=== PATIENT | male | born 2000 | race Caucasian/White ===

== ENCOUNTER 2021-02-08 08:06 | Emergency (ER) | payer SELFPAY ==
[2021-02-08] MEDS ORDERED: SODIUM CHLORIDE 0.9% 1000 ML 1,000 ML IV ONE (08:24)
[2021-02-08] MEDS ORDERED: levETIRAcetam 1000 MG/NS 0.75% 1,000 MG/100 ML BAG IV ONE (08:24)
--- NOTE | 2021-02-08 08:28 | Emergency Department Report ---
HPI - General Chief Complaint: Seizure Time Seen by Provider: 02/08/21 08:19 - HPI HPI: This is a 20-year-old male who presents to the emergency department via EMS after a possible seizure. The patient thinks that he was last in the shower and then came to once he was being unloaded from the ambulance into the emergency department. Patient denies any complaints at this time other than feeling "out of it." He denies any past seizure history. He denies any past medical history. The patient occasionally will use a vape pen. No recent illicit drug use but had previously smoked marijuana. He will occasionally drink alcohol but denies daily alcohol use, any use yesterday, or any history of dependence or withdrawal symptoms. He did not take anything, nor was given anything for his symptoms prior to presentation today. ED Past Medical Hx - Past Medical History Previous Medical History?: No - Surgical History Past Surgical History?: No - Social History Smoking Status: Current Every Day Smoker - Medications Home Medications: Home Medications Medication Instructions Recorded Confirmed Last Taken Type HYDROcodone/APAP 5-325 [[place] 1 each PO Q8HR PRN #14 tablet 06/11/13 Unknown Rx 5/325 mg] levETIRAcetam [Keppra TAB] 500 mg PO BID #60 tablet 02/08/21 Unknown Rx ED Review of Systems ROS: Stated complaint: SEIZURE Other details as noted in HPI Comment: All other systems reviewed and negative Constitutional: denies: chills, fever Eyes: denies: eye pain, vision change ENT: denies: ear pain, throat pain Respiratory: denies: cough, shortness of breath Cardiovascular: denies: chest pain, palpitations Gastrointestinal: denies: abdominal pain, vomiting Genitourinary: denies: dysuria, discharge Musculoskeletal: denies: back pain, arthralgia Skin: denies: rash, lesions Neurological: other (Seizure). denies: headache Physical Exam - Physical Exam Vital Signs: Vital Signs 02/08/21 08:19 Temperature 99.1 F Pulse Rate 124 H Respiratory 18 Rate Blood Pressure 141/72 [Right] O2 Sat by Pulse 98 Oximetry Physical Exam: GENERAL: The patient is well-developed well-nourished. HENT: Normocephalic. Atraumatic. Patient has moist mucous membranes. EYES: Extraocular motions are intact. Pupils equal reactive to light bilaterally. No nystagmus. NECK: Supple. Trachea is midline. CHEST/LUNGS: Clear to auscultation. There is no respiratory distress noted. HEART/CARDIOVASCULAR: Regular. There is no tachycardia. There is no murmur. ABDOMEN: Abdomen is soft, nontender. Patient has normal bowel sounds. SKIN: Skin is warm and dry. NEURO: The patient is awake, alert, and oriented. The patient is cooperative. The patient has no focal neurologic deficits. Normal speech. Cranial nerves II through XII grossly intact. No facial asymmetry. No pronator drift or dysmetria. MUSCULOSKELETAL: There is no tenderness or deformity. There is no limitation range of motion. ED Course Vital Signs 02/08/21 08:19 Temperature 99.1 F Pulse Rate 124 H Respiratory 18 Rate Blood Pressure 141/72 [Right] O2 Sat by Pulse 98 Oximetry ED Medical Decision Making - Lab Data Result diagrams: 02/08/21 08:34 02/08/21 08:34 Lab Results 02/08/21 02/08/21 02/08/21 Range/Units 08:34 08:34 08:34 WBC 8.2 (4.5-11.0) K/mm3 RBC 5.15 H (3.65-5.03) M/mm3 Hgb 15.2 (11.8-15.2) gm/dl Hct 42.6 (35.5-45.6) % MCV 83 L (84-94) fl MCH 30 (28-32) pg MCHC 36 H (32-34) % RDW 12.9 L (13.2-15.2) % Plt Count 200 (140-440) K/mm3 Lymph % (Auto) 40.4 H (13.4-35.0) % [place] % (Auto) 4.5 (0.0-7.3) % Eos % (Auto) 2.3 (0.0-4.3) % Baso % (Auto) 0.6 (0.0-1.8) % Lymph # (Auto) 3.3 (1.2-5.4) K/mm3 [place] # (Auto) 0.4 (0.0-0.8) K/mm3 Eos # (Auto) 0.2 (0.0-0.4) K/mm3 Baso # (Auto) 0.0 (0.0-0.1) K/mm3 Seg Neutrophils % 52.2 (40.0-70.0) % Seg Neutrophils # 4.3 (1.8-7.7) K/mm3 Sodium 138 (137-145) mmol/L Potassium 3.5 L (3.6-5.0) mmol/L Chloride 102.2 (98-107) mmol/L Carbon Dioxide 23 (22-30) mmol/L Anion Gap 16 mmol/L BUN 17 (9-20) mg/dL Creatinine 0.7 L (0.8-1.3) mg/dL Estimated GFR > 60 ml/min BUN/Creatinine Ratio 24 % Glucose 106 H (75-100) mg/dL Calcium 9.1 (8.4-10.2) mg/dL Total Bilirubin 0.40 (0.1-1.2) mg/dL AST 20 (5-40) units/L ALT 44 (7-56) units/L Alkaline Phosphatase 75 (35-129) units/L Total Creatine Kinase 193 H (55-170) units/L Total Protein 7.7 (6.3-8.2) g/dL Albumin 4.7 (3.9-5) g/dL Albumin/Globulin Ratio 1.6 % TSH (0.270-4.200) mlU/mL Urine Color (Yellow) Urine Turbidity (Clear) Urine pH (5.0-7.0) Ur Specific [place] (1.003-1.030) Urine Protein (Negative) mg/dL Urine Glucose (UA) (Negative) mg/dL Urine Ketones (Negative) mg/dL Urine Blood (Negative) Urine Nitrite (Negative) Urine Bilirubin (Negative) Urine Urobilinogen (<2.0) mg/dL Ur Leukocyte Esterase (Negative) Urine WBC (Auto) (0.0-6.0) /HPF Urine RBC (Auto) (0.0-6.0) /HPF Urine Mucus /HPF Urine Opiates Screen Urine Methadone Screen Ur Barbiturates Screen Ur Phencyclidine Scrn Ur Amphetamines Screen U Benzodiazepines Scrn Urine Cocaine Screen U Marijuana (THC) Screen Drugs of Abuse Note Plasma/Serum Alcohol < 0.01 (0-0.07) % 02/08/21 02/08/21 02/08/21 Range/Units 08:34 Unknown Unknown WBC (4.5-11.0) K/mm3 RBC (3.65-5.03) M/mm3 Hgb (11.8-15.2) gm/dl Hct (35.5-45.6) % MCV (84-94) fl MCH (28-32) pg MCHC (32-34) % RDW (13.2-15.2) % Plt Count (140-440) K/mm3 Lymph % (Auto) (13.4-35.0) % [place] % (Auto) (0.0-7.3) % Eos % (Auto) (0.0-4.3) % Baso % (Auto) (0.0-1.8) % Lymph # (Auto) (1.2-5.4) K/mm3 [place] # (Auto) (0.0-0.8) K/mm3 Eos # (Auto) (0.0-0.4) K/mm3 Baso # (Auto) (0.0-0.1) K/mm3 Seg Neutrophils % (40.0-70.0) % Seg Neutrophils # (1.8-7.7) K/mm3 Sodium (137-145) mmol/L Potassium (3.6-5.0) mmol/L Chloride (98-107) mmol/L Carbon Dioxide (22-30) mmol/L Anion Gap mmol/L BUN (9-20) mg/dL Creatinine (0.8-1.3) mg/dL Estimated GFR ml/min BUN/Creatinine Ratio % Glucose (75-100) mg/dL Calcium (8.4-10.2) mg/dL Total Bilirubin (0.1-1.2) mg/dL AST (5-40) units/L ALT (7-56) units/L Alkaline Phosphatase (35-129) units/L Total Creatine Kinase (55-170) units/L Total Protein (6.3-8.2) g/dL Albumin (3.9-5) g/dL Albumin/Globulin Ratio % TSH 1.320 (0.270-4.200) mlU/mL Urine Color Yellow (Yellow) Urine Turbidity Clear (Clear) Urine pH 5.0 (5.0-7.0) Ur Specific [place] 1.017 (1.003-1.030) Urine Protein 30 mg/dl (Negative) mg/dL Urine Glucose (UA) Neg (Negative) mg/dL Urine Ketones Neg (Negative) mg/dL Urine Blood Neg (Negative) Urine Nitrite Neg (Negative) Urine Bilirubin Neg (Negative) Urine Urobilinogen < 2.0 (<2.0) mg/dL Ur Leukocyte Esterase Neg (Negative) Urine WBC (Auto) < 1.0 (0.0-6.0) /HPF Urine RBC (Auto) 2.0 (0.0-6.0) /HPF Urine Mucus Few /HPF Urine Opiates Screen Negative Urine Methadone Screen Negative Ur Barbiturates Screen Negative Ur Phencyclidine Scrn Negative Ur Amphetamines Screen Negative U Benzodiazepines Scrn Negative Urine Cocaine Screen Negative U Marijuana (THC) Screen Negative Drugs of Abuse Note Disclamer Plasma/Serum Alcohol (0-0.07) % - EKG Data -: EKG Interpreted by Me EKG shows normal: sinus rhythm (Sinus arrhythmia), axis, intervals, QRS complexes, ST-T waves Rate: normal - EKG Data When compared to previous EKG there are: previous EKG unavailable Interpretation: normal EKG - Radiology Data Radiology results: report reviewed CT HEAD WITHOUT CONTRAST INDICATION / CLINICAL INFORMATION: Patient had a seizu re. TECHNIQUE: All CT scans at this location are performed using CT dose reduction for ALARA by means of automated exposure control. COMPARISON: None available. FINDINGS: HEMORRHAGE: None. EXTRA-AXIAL SPACES: Normal in size and morphology for the patient's age. VENTRICULAR SYSTEM: Normal in size and morphology for the patient's age. CEREBRAL PARENCHYMA: No significant abnormality. No acute territorial infarct. MIDLINE SHIFT OR HERNIATION: None. CEREBELLUM / BRAINSTEM: No significant abnormality. ORBITS: Normal as visualized. SOFT TISSUES of HEAD: No significant abnormality. CALVARIUM: No significant abnormality. PARANASAL SINUSES / MASTOID AIR CELLS: Normal as visualized. ADDITIONAL FINDINGS: None. IMPRESSION: 1. No acute intracranial abnormality. - Medical Decision Making This patient presented to the emergency department after a suspected seizure. The patient does not have any previous seizure history. On examination he is AAO x3, to person, place, time. On examination he does not have any focal, motor or sensory deficits, and his cranial nerves are intact. It is unknown to me whether or not the patient had witnessed seizure-like activi ty. However, it does appear that he has had a postictal period as he remembers being in the bathroom and then the next thing he remembers is waking up as he is being unloaded from the ambulance into the emergency department. This does not appear consistent with a simple syncopal episode. For these reasons a CT scan of the head without contrast was done that did not show any hemorrhage, large vessel occlusion, hydrocephalus, edema, or any other acute process. Patient's labs have been unremarkable including CBC, metabolic panel, normal thyroid function, normal CK level, negative blood alcohol level, and negative UDS. The patient was given some IV fluid resuscitation and loaded with a gram of Keppra. He was reevaluated multiple times over more than 3 hours and has not had any further seizure-like activity or any change in his mentation. Vital signs have been reassuring throughout his ED course including being afebrile. The patient will be discharged home to follow-up with primary care and neurology. He has been given a prescription for Keppra. We discussed avoiding any alcohol, illicit drugs or excessive caffeine. The patient also understands that he is not allowed to drive any vehicles or operate any heavy machinery until cleared by a neurologist or his primary care physician. Critical Care Time: No Critical care attestation.: If time is entered above; I have spent that time in minutes in the direct care of this critically ill patient, excluding procedure time. ED Disposition Clinical Impression: Seizure Disposition: DC-01 TO HOME OR SELFCARE Is pt being admited?: No Condition: Stable Instructions: Seizure, Adult Additional Instructions: Please follow-up with a primary care physician in the next few days. I have given you a referral for a local primary care physician and a primary care clinic. I have also given you a referral for a local neurologist, Dr. Phelan, to follow-up regarding the concern for new onset seizure. I am starting you on a seizure medication called Keppra that is taken twice daily. Please avoid any alcohol, illicit drugs, or excessive caffeine use, as these can lower your seizure threshold. Unfortunately, since you may have had a seizure, you are not allowed to drive or operate a vehicle or any heavy machinery until you are cleared by a neurologist or your primary care physician. Return to the emergency department with any worsening of your symptoms, new or concerning symptoms not addressed during this current emergency department visit, or with any acute distress. Prescriptions: levETIRAcetam [Keppra TAB] 500 mg PO BID #60 tablet Referrals: PRIMARY CAREMD [Primary Care Provider] - 2-3 Days ZACH PHELAN MD [Referring] - 2-3 Days LUCI MENDOZA MD [Staff Physician] - 2-3 Days [facility] [Provider Group] - 2-3 Days Time of Disposition: 10:54
[2021-02-08 08:54] LABS: Basophils % (Auto) 0.6 % (0.0-1.8); Eosinophils # (Auto) 0.2 K/mm3 (0.0-0.4); Eosinophils % (Auto) 2.3 % (0.0-4.3); Hematocrit 42.6 % (35.5-45.6); Hemoglobin 15.2 gm/dl (11.8-15.2); Lymphocytes # (Auto) 3.3 K/mm3 (1.2-5.4); Lymphocytes % (Auto) 40.4 % (13.4-35.0); Mean Corpuscular HGB Conc 36 % (32-34); Mean Corpuscular Volume 83 fl (84-94); Monocytes # (Auto) 0.4 K/mm3 (0.0-0.8); Monocytes % (Auto) 4.5 % (0.0-7.3); Platelet Count 200 K/mm3 (140-440); Red Blood Count 5.15 M/mm3 (3.65-5.03); Red Cell Distribution Width 12.9 % (13.2-15.2)
[2021-02-08 09:10] LABS: Alanine Aminotransferase 44 units/L (7-56); Albumin 4.7 g/dL (3.9-5); BUN/Creatinine Ratio 24; Blood Urea Nitrogen 17 mg/dL (9-20); Calcium 9.1 mg/dL (8.4-10.2); Hemolysis Index 6
[2021-02-08 09:11] LABS: Bilirubin,Urine NEG (Negative); Blood,Urine NEG (Negative); Color,Urine Yellow (Yellow); Mucus,Urine FEW /HPF; Urobilinogen,Urine < 2.0 mg/dL (<2.0); WBC,Urine < 1.0 /HPF (0.0-6.0)
--- NOTE | 2021-02-08 09:14 | Cat Scan Report ---
CT HEAD WITHOUT CONTRAST INDICATION / CLINICAL INFORMATION: Patient had a seizure. TECHNIQUE: All CT scans at this location are performed using CT dose reduction for ALARA by means of automated e xposure control. COMPARISON: None available. FINDINGS: HEMORRHAGE: None. EXTRA-AXIAL SPACES: Normal in size and morphology for the patient's age. VENTRICULAR SYSTEM: Normal in size and morphology for the patient's age. CEREBRAL PARENCHYMA: No significant abnormality. No acute territorial infarct. MIDLINE SHIFT OR HERNIATION: None. CEREBELLUM / BRAINSTEM: No significant abnormality. ORBITS: Normal as visualized. SOFT TISSUES of HEAD: No significant abnormality. CALVARIUM: No significant abnormality. PARANASAL SINUSES / MASTOID AIR CELLS: Normal as visualized. ADDITIONAL FINDINGS: None. IMPRESSION: 1. No acute intracranial abnormality. Signer Name: Karthikeyan Dao MD Signed: 02/08/2021 9:09 AM Workstation Name: [id number]
[2021-02-08 09:16] LABS: Amphetamine Screen,Urine Negative; Benzodiazepines Screen,Urine Negative; Cannabinoid Screen,Urine Negative; Cocaine Screen,Urine Negative; Methadone Screen,Urine Negative; Opiate Screen,Urine Negative
[2021-02-08 11:38] VITALS: BP 123/64
--- NOTE | 2021-02-09 13:17 | Electrocardiograph Report ---
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
== END 2021-02-08 12:03 | disposition home or self-care (01) ==
LOC: ED 08:06
DX: G40.909 Epilepsy, unspecified, not intractable, without status epilepticus (principal); F17.200 Nicotine dependence, unspecified, uncomplicated; Z79.899 Other long term (current) drug therapy
CPT/HCPCS: 36415; 70450; 80053; 80307; 81001; 82550; 84443; 85025; 93005; 96365; 96366; 99284; J1953; J7030; 80320; G0480

== ENCOUNTER 2021-10-17 22:31 | Emergency (ER) | payer SELFPAY ==
[2021-10-18 00:51] LABS: Basophils % (Auto) 0.6 % (0.0-1.8); Eosinophils # (Auto) 0.1 K/mm3 (0.0-0.4); Eosinophils % (Auto) 2.2 % (0.0-4.3); Hematocrit 42.2 % (35.5-45.6); Lymphocytes # (Auto) 2.3 K/mm3 (1.2-5.4); Mean Corpuscular HGB Conc 36 % (32-34); Mean Corpuscular Volume 82 fl (84-94); Monocytes # (Auto) 0.4 K/mm3 (0.0-0.8); Monocytes % (Auto) 5.5 % (0.0-7.3); Platelet Count 222 K/mm3 (140-440); Red Blood Count 5.12 M/mm3 (3.65-5.03); Red Cell Distribution Width 13.3 % (13.2-15.2)
--- NOTE | 2021-10-18 01:02 | XRay Report ---
CHEST 2 VIEWS INDICATION / CLINICAL INFORMATION: Chest Pain. COMPARISON: None available. FINDINGS: SUPPORT DEVICES: None. HEART / MEDIASTINUM: No significant abnormality. LUNGS / PLEURA: No significant pulmonary or pleural abnormality. No pneumothorax. ADDITIONAL FINDINGS: No significant additional findings. IMPRESSION: 1. No active cardiopulmonary disease. Signer Name: Víctor Sales II, MD Signed: 10/18/2021 12:57 AM Workstation Name: [id number]
[2021-10-18 01:07] LABS: Alanine Aminotransferase 60 units/L (7-56); Blood Urea Nitrogen 16 mg/dL (9-20); Calcium 9.1 mg/dL (8.4-10.2); Hemolysis Index 19
[2021-10-18 01:10] LABS: BUN/Creatinine Ratio 23
--- NOTE | 2021-10-18 03:26 | Ultrasound Report ---
ULTRASOUND ABDOMEN, LIMITED INDICATION / CLINICAL INFORMATION: ruq pain. COMPARISON: None available. FINDINGS: PANCREAS: Visualized portion shows no significant abnormality. LIVER: Liver demonstrates diffuse increase in hepatic echotexture. Right hepatic lobe measures 14.5 c m. Normal hepatopedal blood flow in the main portal vein. GALLBLADDER: Small echogenic foci along the gallbladder wall near the gallbladder neck may reflect sm all stones or polyps. No wall thickening. No pericholecystic fluid. BILE DUCTS: No significant abnormality. Common bile duct measures 3.3 mm. FREE FLUID: None. ADDITIONAL FINDINGS: Longitudinal images of the aorta and inferior vena cava demonstrate no significa nt abnormalities. IMPRESSION: 1. Small echogenic foci along the gallbladder neck suggesting stones or possibly polyp suggested. No findings to suggest acute cholecystitis. 2. Appearance of the liver is compatible with hepatic steatosis. Signer Name: Víctor Sales II, MD Signed: 10/18/2021 3:21 AM Workstation Name: [id number]
--- NOTE | 2021-10-18 04:22 | Emergency Department Report ---
ED General Adult HPI - General Chief complaint: Chest Pain Stated complaint: RIGHT FLANK PAIN/NAUSEA/DIZZY Time Seen by Provider: 10/18/21 00:07 Source: patient Mode of arrival: Ambulatory Limitations: No Limitations - History of Present Illness Initial comments: 21-year-old male presents emergency department complaining of pain to the right upper quadrant off and on associated with occasional nausea but no vomiting for the past few weeks. Also reports having some issues with epigastric pain and vague chest pain for the past couple days as well. Normoxia continues hematochezia, no fevers chills or sweats. Reports no hematuria, no dysuria, no fever, chills, sweats. -: Gradual Severity scale (0 -10): 6 Improves with: none Worsens with: none Associated Symptoms: denies other symptoms Treatments Prior to Arrival: none - Related Data Previous Rx's Medication Instructions Recorded Last Taken Type HYDROcodone/APAP 5-325 [[place] 1 each PO Q8HR PRN #14 tablet 06/11/13 Unknown Rx 5/325 mg] levETIRAcetam [Keppra TAB] 500 mg PO BID #60 tablet 02/08/21 Unknown Rx Hyoscyamine Subl [Levsin Sl 0.125 0.125 mg SL Q6HR PRN #20 tab 10/18/21 Unknown Rx TAB] Allergies Allergy/AdvReac Type Severity Reaction Status Date / Time No Known Allergies Allergy Unverified 06/11/13 15:45 ED Review of Systems ROS: Stated complaint: RIGHT FLANK PAIN/NAUSEA/DIZZY Other details as noted in HPI Comment: All other systems reviewed and negative ED Past Medical Hx - Social History Smoking Status: Current Every Day Smoker - Medications Home Medications: Home Medications Medication Instructions Recorded Confirmed Last Taken Type HYDROcodone/APAP 5-325 [[place] 1 each PO Q8HR PRN #14 tablet 06/11/13 Unknown Rx 5/325 mg] levETIRAcetam [Keppra TAB] 500 mg PO BID #60 tablet 02/08/21 Unknown Rx Hyoscyamine Subl [Levsin Sl 0.125 0.125 mg SL Q6HR PRN #20 tab 10/18/21 Unknown Rx TAB] ED Physical Exam - General Limitations: No Limitations General appearance: alert, in no apparent distress - Head Head exam: Present: atraumatic, normocephalic - Eye Eye exam: Present: normal appearance, PERRL Pupils: Present: normal accommodation - ENT ENT exam: Present: normal exam, normal orophraynx, mucous membranes moist, TM's normal bilaterally - Neck Neck exam: Present: normal inspection, full ROM - Respiratory Respiratory exam: Present: normal lung sounds bilaterally. Absent: respiratory distress - Cardiovascular Cardiovascular Exam: Present: regular rate, normal rhythm. Absent: systolic murmur, diastolic murmur, rubs, gallop - GI/Abdominal GI/Abdominal exam: Present: soft, normal bowel sounds - Rectal Rectal exam: Present: deferred - Extremities Exam Extremities exam: Present: normal inspection, normal capillary refill - Back Exam Back exam: Present: normal inspection. Absent: CVA tenderness (R), CVA tenderness (L) - Neurological Exam Neurological exam: Present: alert, oriented X3, CN II-XII intact, normal gait - Psychiatric Psychiatric exam: Present: normal affect, normal mood - Skin Skin exam: Present: warm, dry, intact, normal color. Absent: rash, cyanosis, diaphoretic ED Course Vital Signs 10/17/21 23:36 Temperature 98.7 F Pulse Rate 68 Respiratory 16 Rate Blood Pressure 133/77 [Left] O2 Sat by Pulse 98 Oximetry ED Medical Decision Making - Lab Data Result diagrams: 10/18/21 00:30 10/18/21 00:30 Lab Results 10/18/21 10/18/21 Range/Units 00:30 00:30 WBC 6.7 (4.5-11.0) K/mm3 RBC 5.12 H (3.65-5.03) M/mm3 Hgb 15.0 (11.8-15.2) gm/dl Hct 42.2 (35.5-45.6) % MCV 82 L (84-94) fl MCH 29 (28-32) pg MCHC 36 H (32-34) % RDW 13.3 (13.2-15.2) % Plt Count 222 (140-440) K/mm3 Lymph % (Auto) 35.0 (13.4-35.0) % [place] % (Auto) 5.5 (0.0-7.3) % Eos % (Auto) 2.2 (0.0-4.3) % Baso % (Auto) 0.6 (0.0-1.8) % Lymph # (Auto) 2.3 (1.2-5.4) K/mm3 [place] # (Auto) 0.4 (0.0-0.8) K/mm3 Eos # (Auto) 0.1 (0.0-0.4) K/mm3 Baso # (Auto) 0.0 (0.0-0.1) K/mm3 Seg Neutrophils % 56.7 (40.0-70.0) % Seg Neutrophils # 3.8 (1.8-7.7) K/mm3 Sodium 142 (137-145) mmol/L Potassium 4.4 (3.6-5.0) mmol/L Chloride 105.5 (98-107) mmol/L Carbon Dioxide 22 (22-30) mmol/L Anion Gap 19 mmol/L BUN 16 (9-20) mg/dL Creatinine 0.7 L (0.8-1.3) mg/dL Estimated GFR > 60 ml/min BUN/Creatinine Ratio 23 % Glucose 112 H (75-100) mg/dL Calcium 9.1 (8.4-10.2) mg/dL Total Bilirubin 0.30 (0.1-1.2) mg/dL AST 29 (5-40) units/L ALT 60 H (7-56) units/L Alkaline Phosphatase 67 (35-129) units/L Total Protein 7.7 (6.3-8.2) g/dL Albumin 5.0 (3.9-5) g/dL Albumin/Globulin Ratio 1.9 % Lipase 20 (13-60) units/L - EKG Data EKG shows normal: sinus rhythm Rate: tachycardia - EKG Data When compared to previous EKG there are: no significant change Interpretation: normal EKG - Radiology Data Radiology results: report reviewed [facility] [address] [place] [address] XRay Report Signed Patient: LEANNE THOMAS MR#: [id number] 9 : 2000 Acct:[id number] Age/Sex: 21 / M ADM Date: 10/17/21 Loc: ED Attending Dr: Ordering Physician: CLEEMNCIA CASTRO Date of Service: 10/18/21 Procedure(s): XR chest routine 2V Accession Number(s): [id number] cc: CLEMENCIA CASTRO Fluoro Time In Minutes: CHEST 2 VIEWS INDICATION / CLINICAL INFORMATION: Chest Pain. COMPARISON: None available. FINDINGS: SUPPORT DEVICES: None. HEART / MEDIASTINUM: No significant abnormality. LUNGS / PLEURA: No significant pulmonary or pleural abnormality. No pneumothorax. ADDITIONAL FINDINGS: No significant additional findings. IMPRESSION: 1. No active cardiopulmonary disease. Signer Name: Cyrus Foss II, MD Signed: 10/18/2021 12:57 AM Workstation Name: [id number] Transcribed By: HILARIO Dictated By: CYRUS FOSS II, MD Electronically Authenticated By: CYRUS FOSS II, MD Signed Date/Time: 10/18/2156 DD/ TD/TT: [facility] [address] [place] [address] Ultrasound Report Signed Patient: LEANNE THOMAS MR#: [id number] 9 : 2000 Acct:[id number] Age/Sex: 21 / M ADM Date: 10/17/21 Loc: ED Attending Dr: Ordering Physician: CLEMENCIA CASTRO Date of Service: 10/18/21 Procedure(s): US abdomen limited Accession Number(s): [id number] cc: CLEMENCIA CASTRO ULTRASOUND ABDOMEN, LIMITED INDICATION / CLINICAL INFORMATION: ruq pain. COMPARISON: None available. FINDINGS: PANCREAS: Visualized portion shows no significant abnormality. LIVER: Liver demonstrates diffuse increase in hepatic echotexture. Right hepatic lobe measures 14.5 cm. Normal hepatopedal blood flow in the main portal vein. GALLBLADDER: Small echogenic foci along the gallbladder wall near the gallbladder neck may reflect small stones or polyps. No wall thickening. No pericholecystic fluid. BILE DUCTS: No significant abnormality. Common bile duct measures 3.3 mm. FREE FLUID: None. ADDITIONAL FINDINGS: Longitudinal images of the aorta and inferior vena cava demonstrate no significant abnormalities. IMPRESSION: 1. Small echogenic foci along the gallbladder neck suggesting stones or possib ly polyp suggested. No findings to suggest acute cholecystitis. 2. Appearance of the liver is compatible with hepatic steatosis. Signer Name: Cyrus Foss II, MD Signed: 10/18/2021 3:21 AM Workstation Name: [id number] Transcribed By: HILARIO Dictated By: CYRUS FOSS II, MD Electronically Authenticated By: CYRUS FOSS II, MD Signed Date/Time: 10/18/21320 DD/ 8 TD/TT: Print Cancel - Medical Decision Making This patient presents with abdominal pain of unclear etiology. Their evaluation has not identified a emergent etiology for the abdominal pain. Specifically, given the very benign exam, normal laboratory studies, and lack of significant risk factors, I have a very low suspicion for appendicitis, ischemic bowel, bowel perforation, or any other life threatening disease. I have discussed with the patient the level of uncertainty with undifferentiated abdominal pain and clearly explained the need to follow-up as noted on the discharge instructions, or return to the Emergency Department immediately if the pain worsens, develops fever, persistent and uncontrollable vomiting, or for any new symptoms or concerns. I discussed with the patient that this presentation today for abdominal pain could represent a significant risk for an acute abdominal process. Although the tests in the ED were essentially normal, there is still a possibility of a process such as appendicitis, diverticulitis, cholecystitis, ulcer, early bowel obstruction, mesenteric ischemia, kidney stone, or even kidney infection which could subsequently cause disability or . The patient understands that they must return within 24 hours for a recheck or see their physician within 24 hours for re-exam due to the possibility of significant surgical or medical process. Critical care attestation.: If time is entered above; I have spent that time in minutes in the direct care of this critically ill patient, excluding procedure time. ED Disposition Clinical Impression: Abdominal pain, Gallstone Disposition: 01 HOME / SELF CARE / HOMELESS Is pt being admited?: No Does the pt Need Aspirin: No Condition: Stable Instructions: Abdominal Pain, Adult, Pain Without a Known Cause, Cholelithiasis Prescriptions: Hyoscyamine Subl [Levsin Sl 0.125 TAB] 0.125 mg SL Q6HR PRN #20 tab PRN Reason: abdominal pain Referrals: CITLALY THOMAS NP [Primary Care Provider] - 3-5 Days
[2021-10-18 05:11] VITALS: BP 158/107
--- NOTE | 2021-10-19 11:49 | Electrocardiograph Report ---
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
== END 2021-10-18 05:12 | disposition home or self-care (01) ==
LOC: ED 22:31
DX: K80.80 Other cholelithiasis without obstruction (principal); F17.200 Nicotine dependence, unspecified, uncomplicated; Z79.899 Other long term (current) drug therapy
CPT/HCPCS: 36415; 71046; 76705; 80053; 83690; 85025; 93005; 93010; 99284

== ENCOUNTER 2022-01-07 14:19 | Emergency (ER) | payer SELFPAY ==
[2022-01-07] MEDS ORDERED: LORazepam 2 MG/ML VIAL IM PRN (14:57)
[2022-01-07] MEDS ORDERED: HALOPERIDOL LACTATE 5 MG/1 ML INJ IM PRN (14:57)
[2022-01-07] MEDS ORDERED: levETIRAcetam 1000 MG/NS 0.75% 1,000 MG/100 ML BAG IV ONE ×2 (14:57→14:58)
[2022-01-07] MEDS ORDERED: SODIUM CHLORIDE 0.9% 1000 ML 2,000 ML IV ONE (14:59)
--- NOTE | 2022-01-07 14:59 | Emergency Department Report ---
ED General Adult HPI - General Chief complaint: Seizure Stated complaint: SEIZURE Time Seen by Provider: 01/07/22 14:55 Source: patient, family, RN notes reviewed, old records reviewed Mode of arrival: Ambulatory Limitations: Altered Mental Status - History of Present Illness Initial comments: The patient was evaluated in the emergency department for symptoms described in the history of present illness. He/she was evaluated in the context of the glob al COVID-19 pandemic, which necessitated consideration that the patient might be at risk for infection with the virus that causes COVID-19. Institutional protocols and algorithms that pertain to the evaluation of patients at risk for COVID-19 are in a state of rapid change based on information released by regulatory bodies including the CDC and federal and state organizations. These policies and algorithms were followed during the patient's care in the emergency department. Please note that these policies, procedures and recommendations changed on a rapid basis. The patient is a 21-year-old gentleman, with a possible history of seizure disorder, who was brought to the hospital by family for possible seizure and/or convulsion at home. History obtained from patient and from father. While in room 3, getting an EKG, the patient reportedly had another seizure or convulsion, and reportedly fell and hit his head. His Accu-Chek is 153, and he is immediately brought back to the main emergency room, room 22, for evaluation. The patient is awake and confused. He denies physical pain. His father does not know the specific details of his past medical history. Specifically, uncertain if the patient has had an MRI or an EEG. The father reports no recreational drug use to the best of his knowledge. -: Sudden - Related Data Previous Rx's Medication Instructions Recorded Last Taken Type levETIRAcetam [Keppra TAB] 750 mg PO BID #90 tab 01/07/22 Unknown Rx Allergies Allergy/AdvReac Type Severity Reaction Status Date / Time No Known Allergies Allergy Unverified 01/07/22 15:17 ED Review of Systems ROS: Stated complaint: SEIZURE Other details as noted in HPI Comment: Unobtainable due to pts medical conditions (Review of systems as per father) Constitutional: denies: fever Respiratory: denies: cough Cardiovascular: denies: chest pain Gastrointestinal: denies: nausea, vomiting, diarrhea Neurological: confusion, other (Seizure) ED Past Medical Hx - Social History Smoking Status: Current Every Day Smoker - Medications Home Medications: Home Medications Medication Instructions Recorded Confirmed Last Taken Type levETIRAcetam [Keppra TAB] 750 mg PO BID #90 tab 01/07/22 Unknown Rx ED Physical Exam - General Limitations: Altered Mental Status General appearance: anxious, obese - Head Head exam: Present: atraumatic, normocephalic - Eye Eye exam: Present: normal appearance, EOMI. Absent: nystagmus - ENT ENT exam: Present: normal exam, normal orophraynx, mucous membranes moist, normal external ear exam - Neck Neck exam: Present: normal inspection, full ROM. Absent: tenderness, meningismus - Respiratory Respiratory exam: Present: normal lung sounds bilaterally. Absent: respiratory distress, wheezes, rales, rhonchi, stridor, decreased breath sounds - Cardiovascular Cardiovascular Exam: Present: normal rhythm, tachycardia, normal heart sounds. Absent: bradycardia, irregular rhythm, systolic murmur, diastolic murmur, rubs, gallop - GI/Abdominal GI/Abdominal exam: Present: soft. Absent: distended, tenderness, guarding, rebound, rigid, pulsatile mass - Rectal Rectal exam: Present: deferred - Extremities Exam Extremities exam: Present: normal inspection, full ROM, other (2+ pulses noted in the bilateral upper and lower extremities. There is no palpable cord. negative Homans sign. Muscular compartments are soft. The pelvis is stable.). Absent: pedal edema, calf tenderness - Back Exam Back exam: Present: normal inspection, full ROM. Absent: tenderness, CVA tenderness (R), CVA tenderness (L), paraspinal tenderness, vertebral tenderness - Neurological Exam Neurological exam: Present: altered, other (There is no facial droop. The tongue is midline. EOMI. 5/5 strength in 4 extremities) - Psychiatric Psychiatric exam: Present: anxious - Skin Skin exam: Present: warm, dry, intact, normal color. Absent: rash ED Course Vital Signs 01/07/22 01/07/22 01/07/22 14:37 15:30 15:51 Temperature 97.9 F Pulse Rate 140 H 117 H Respiratory 16 18 23 Rate Blood Pressure Blood Pressure 152/70 [Left] O2 Sat by Pulse 96 99 92 Oximetry 01/07/22 01/07/22 01/07/22 15:54 16:01 16:15 Temperature Pulse Rate 85 112 H 109 H Respiratory 18 43 H 33 H Rate Blood Pressure 125/63 124/71 Blood Pressure 126/53 [Left] O2 Sat by Pulse 93 89 88 Oximetry 01/07/22 01/07/22 01/07/22 16:45 17:01 17:15 Temperature Pulse Rate 106 H 104 H 113 H Respiratory 34 H 32 H 25 H Rate Blood Pressure 125/74 128/67 128/74 Blood Pressure [Left] O2 Sat by Pulse 93 93 97 Oximetry 01/07/22 01/07/22 01/07/22 17:31 17:45 18:01 Temperature Pulse Rate 99 H 98 H 99 H Respiratory 28 H 34 H 33 H Rate Blood Pressure 135/71 132/59 125/72 Blood Pressure [Left] O2 Sat by Pulse 95 94 97 Oximetry 01/07/22 18:07 Temperature Pulse Rate 85 Respiratory 17 Rate Blood Pressure Blood Pressure 116/66 [Left] O2 Sat by Pulse 99 Oximetry - Reevaluation(s) Reevaluation #1: 01/07/22 16:06 Differential diagnosis, including not limited to: Seizure, breakthrough seizure, medication noncompliance, recreational drug use, intracranial injury, cervical spine injury, electrolyte derangement Assessment and plan: 21-year-old gentleman with possible history of seizure or epilepsy, currently maintained on Keppra, presenting to the ER with breakthrough convulsion. Reportedly had a seizure or convulsion at home, and at least 1 seizure while here in the emergency room. Patient is currently awake and moving 4 extremities without convulsive event. He is able to converse with me, although he is confused. Suspect that this is postictal. Place patient on manager cardiac cath, medicate with Keppra, fluids, patient did require medication with Ativan, given agitation, and trying to climb out of stretcher. A noncontrast CT scan of the brain/cervical spine are negative for acute findings. Laboratory studies pending. Patient currently resting comfortably on stretcher, sleeping, heart rate 105 to 110 bpm. 01/07/22 18:30 The patient is reexamined. He is awake, alert, oriented and sober. He endorses generalized body aches. He endorses sporadic compliance with his Keppra. He denies recreational drug use. His neurologist is Dr. Phelan Patient is advised to not drive or operate motor vehicles for the next 6 months or until cleared to do so by his primary care doctor or neurologist. He is advised to remain compliant with his AED therapy, and he is also counseled to expect to be sore over the next few days. Heart rate 105 bpm. Motor examination nonfocal. No further seizures or convulsions noted. Repeat basic metabolic panel is pending. Initial BMP suggested anion gap, likely secondary to seizures and convulsions Reevaluation #2: 01/07/22 18:44 Repeat chemistry shows improvement and metabolic acidosis. Outpatient follow-up for nonspecific transaminitis. Patient will be given potassium chloride, for potassium of 3.3. No additional seizures noted ED Medical Decision Making - Lab Data Result diagrams: 01/07/22 15:57 01/07/22 17:49 Vital Signs 01/07/22 01/07/22 01/07/22 14:37 15:51 15:54 Temperature 97.9 F Pulse Rate 140 H 117 H 85 Respiratory 16 23 18 Rate Blood Pressure 152/70 126/53 [Left] O2 Sat by Pulse 96 92 93 Oximetry Lab Results 01/07/22 Range/Units 14:55 POC Glucose 153 H (70-105) mg/dL - EKG Data -: EKG Interpreted by [place] EKG shows normal: sinus rhythm Rate: tachycardia - EKG Data 01/07/22 16:03 The EKG is interpreted at 14: 36 Sinus rhythm, tachycardia, rate 139 bpm. Normal axis, normal P wave axis, minimal motion artifact. Not a STEMI. Unremarkable EKG. Unchanged from prior EKG. - Radiology Data Radiology results: pending, report reviewed, image reviewed CT CERVICAL SPINE: 01/07/2022 INDICATION / CLINICAL INFORMATION: fall clossed head injury seizure. COMPARISON: None available. FINDINGS: CT images of the cervical spine were obtained. Images are evaluated in the axial, coronal, and sagittal planes. There is no evidence of acute abnormality. Vertebral body alignment is well preserved. There is no evidence of fracture. LEVEL BY LEVEL ANALYSIS: . CRANIOCERVICAL JUNCTION: Unremarkable. PARASPINAL STRUCTURES: Unremarkable IMPRESSION: No acute abnormality. All CT scans at this location are performed using dose reduction to ALARA by means of automated exposure control. Signer Name: Zenon Caldwell MD Signed: 01/07/2022 2:44 PM Workstation Name: [id number] CT BRAIN: 01/07/2022 INDICATION / CLINICAL INFORMATION: fall clossed head injury seizure. COMPARISON: CT brain 02/08/2021 FINDINGS: BRAIN/INTRACRANIAL STRUCTURES: Unenhanced CT images of the brain demonstrate no evidence of acute abnormality. Ventricles and sulci are normal in size and shape. There is no evidence of acute ischemic injury, hemorrhage, or mass. There are no abnormal extra-axial fluid collections. EXTRACRANIAL STRUCTURES: Unremarkable. IMPRESSION: No acute abnormality. No significant change when compared to 02/08/2021. All CT scans at this location are performed using dose reduction to ALARA by means of automated exposure control. Signer Name: Zenon Caldwell MD Signed: 01/07/2022 2:28 PM Workstation Name: [id number] Critical care attestation.: If time is entered above; I have spent that time in minutes in the direct care of this critically ill patient, excluding procedure time. ED Disposition Clinical Impression: Seizure Closed head injury Qualifiers: Encounter type: initial encounter Qualified Code(s): S09.90XA - Unspecified injury of head, initial encounter Disposition: HOME / SELF CARE / HOMELESS Is pt being admited?: No Does the pt Need Aspirin: No Condition: Good Instructions: Seizure, Adult, [id number] Additional Instructions: Patient is advised to not drive, operate motor vehicles for the next 6 months, or until cleared to do so by his primary care doctor or neurologist. Patient will likely be sore over the next few days, recommend consumption 4 to 6 cups of water per day, and may take ibuprofen, 400 mg by mouth, with food, every 6 hours as needed for physical pain, alternating with Tylenol/acetaminophen, 650 mg by mouth, every 4-6 hours as needed for physical pain, maximum daily dose of Tylenol/acetaminophen should not exceed 3 g in a 24-hour period. Please have your primary care doctor contact the medical records department, to obtain copies of laboratory studies and radiology studies, To follow-up on nonemergent incidental abnormal findings. Recommend the patient not consume alcohol, or take sedating medications. It is very important that patient remain compliant with his Keppra/seizure medications. Noncompliance with seizure medications may result in breakthrough seizures, which in turn may cause disability, paralysis, , and loss of quality of life. We recommend that the patient follow-up with his primary care doctor or neurologist within the next week. Please return to the emergency room right away with new pain, worsened pain, migration of pain, projectile vomiting, change in mental status, confusion, inability tolerate liquid feeds, new, worsened or different symptoms not present on the initial emergency room evaluation Prescriptions: levETIRAcetam [Keppra TAB] 750 mg PO BID #90 tab Referrals: ZACH PHELAN MD [Referring] - 3-5 Days [facility] [Provider Group] - 3-5 Days Forms: Work/School Release Form(ED)
--- NOTE | 2022-01-07 15:32 | Cat Scan Report ---
CT BRAIN: 01/07/2022 INDICATION / CLINICAL INFORMATION: fall clossed head injury seizure. COMPARISON: CT brain 02/08/2021 FINDINGS: BRAIN/INTRACRANIAL STRUCTURES: Unenhanced CT images of the brain demonstrate no evidence of acute abn ormality. Ventricles and sulci are normal in size and shape. There is no evidence of acute ischemic injury, hemorrhage, or mass. There are no abnormal extra-axial fluid collections. EXTRACRANIAL STRUCTURES: Unremarkable. IMPRESSION: No acute abnormality. No significant change when compared to 02/08/2021. All CT scans at this location are performed using dose reduction to ALARA by means of automated expos ure control. Signer Name: Zenon Caldwell MD Signed: 01/07/2022 3:28 PM Workstation Name: [id number]
--- NOTE | 2022-01-07 15:49 | Cat Scan Report ---
CT CERVICAL SPINE: 01/07/2022 INDICATION / CLINICAL INFORMATION: fall clossed head injury seizure. COMPARISON: None available. FINDINGS: CT images of the cervical spine were obtained. Images are evaluated in the axial, coronal, and sagitt al planes. There is no evidence of acute abnormality. Vertebral body alignment is well preserved. There is no e vidence of fracture. LEVEL BY LEVEL ANALYSIS: . CRANIOCERVICAL JUNCTION: Unremarkable. PARASPINAL STRUCTURES: Unremarkable IMPRESSION: No acute abnormality. All CT scans at this location are performed using dose reduction to ALARA by means of automated expos ure control. Signer Name: Zenon Caldwell MD Signed: 01/07/2022 3:44 PM Workstation Name: [id number]
[2022-01-07 16:07] LABS: Hematocrit 49.9 % (35.5-45.6); Hemoglobin 16.3 gm/dl (11.8-15.2); Mean Corpuscular HGB Conc 33 % (32-34); Mean Corpuscular Volume 85 fl (84-94); Platelet Count 252 K/mm3 (140-440); Red Blood Count 5.89 M/mm3 (3.65-5.03); Red Cell Distribution Width 12.8 % (13.2-15.2)
[2022-01-07 16:08] LABS: Bilirubin,Urine NEG (Negative); Blood,Urine MOD (Negative); Color,Urine Straw (Yellow); Granular Casts,Urine 6 /LPF; Hyaline Casts,Urine 1 /LPF; Mucus,Urine FEW /HPF; RBC,Urine < 1.0 /HPF (0.0-6.0); Urobilinogen,Urine < 2.0 mg/dL (<2.0); WBC,Urine < 1.0 /HPF (0.0-6.0)
[2022-01-07 16:13] LABS: Amphetamine Screen,Urine Negative; Benzodiazepines Screen,Urine Negative; Cannabinoid Screen,Urine Negative; Cocaine Screen,Urine Negative; Methadone Screen,Urine Negative; Opiate Screen,Urine Negative
[2022-01-07 16:22] LABS: Alanine Aminotransferase 208 units/L (7-56); Albumin 5.1 g/dL (3.9-5); BUN/Creatinine Ratio 16; Blood Urea Nitrogen 13 mg/dL (9-20); Calcium 9.5 mg/dL (8.4-10.2); Hemolysis Index 14
[2022-01-07] MEDS ORDERED: SODIUM CHLORIDE 0.9% 1000 ML 1,000 ML IV ONE (17:15)
[2022-01-07 18:34] LABS: Blood Urea Nitrogen 13 mg/dL (9-20); Calcium 8.7 mg/dL (8.4-10.2); Hemolysis Index 8
[2022-01-07 18:36] LABS: BUN/Creatinine Ratio 19
[2022-01-07] MEDS ORDERED: POTASSIUM CHLORIDE ER 20 MEQ TAB PO ONE (18:44)
[2022-01-07 19:51] VITALS: BP 132/59
--- NOTE | 2022-01-09 10:15 | Electrocardiograph Report ---
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
== END 2022-01-07 19:40 | disposition home or self-care (01) ==
LOC: ED 14:19
DX: S09.90XA Unspecified injury of head, initial encounter (principal); R56.9 Unspecified convulsions; F17.200 Nicotine dependence, unspecified, uncomplicated; Z79.899 Other long term (current) drug therapy; X58.XXXA Exposure to other specified factors, initial encounter; Y93.89 Activity, other specified; Y92.89 Other specified places as the place of occurrence of the external cause; Y99.8 Other external cause status
CPT/HCPCS: 36415; 70450; 72125; 80048; 80053; 80307; 81001; 82550; 82962; 85027; 93005; 96361; 96372; 96374; 96376; 99284; J1630; J1953; J2060; J7030; 80320; G0480

== ENCOUNTER 2022-05-08 13:49 | Emergency (ER) | payer SELFPAY ==
[2022-05-08 14:10] VITALS: BP 138/83
--- NOTE | 2022-05-08 14:41 | XRay Report ---
CHEST 2 VIEWS INDICATION: Chest Pain. COMPARISON: 10/18/2021 FINDINGS: SUPPORT DEVICES: None. HEART: Within normal limits. LUNGS/PLEURA: No acute air space or interstitial disease. No pneumothorax. ADDITIONAL FINDINGS: None. IMPRESSION: 1. No acute findings. Signer Name: Chester Brumfield MD Signed: 05/08/2022 2:37 PM Workstation Name: [id number]
[2022-05-08 16:08] LABS: Alanine Aminotransferase 85 units/L (7-56); Albumin 5.5 g/dL (3.9-5); Blood Urea Nitrogen 15 mg/dL (9-20); Calcium 9.9 mg/dL (8.4-10.2); Hemolysis Index 6
[2022-05-08 16:16] LABS: BUN/Creatinine Ratio 21
[2022-05-08 17:04] LABS: Basophils % (Auto) 0.5 % (0.0-1.8); Eosinophils # (Auto) 0.1 K/mm3 (0.0-0.4); Eosinophils % (Auto) 1.6 % (0.0-4.3); Hematocrit 47.1 % (35.5-45.6); Hemoglobin 15.9 gm/dl (11.8-15.2); Lymphocytes # (Auto) 1.8 K/mm3 (1.2-5.4); Lymphocytes % (Auto) 28.9 % (13.4-35.0); Mean Corpuscular HGB Conc 34 % (32-34); Mean Corpuscular Volume 83 fl (84-94); Monocytes # (Auto) 0.3 K/mm3 (0.0-0.8); Monocytes % (Auto) 4.6 % (0.0-7.3); Platelet Count 223 K/mm3 (140-440); Red Blood Count 5.68 M/mm3 (3.65-5.03); Red Cell Distribution Width 12.8 % (13.2-15.2)
--- NOTE | 2022-05-09 11:47 | Electrocardiograph Report ---
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
== END 2022-05-09 02:18 | disposition left against medical advice (07) ==
LOC: ED 13:49
DX: R07.9 Chest pain, unspecified (principal); Z53.21 Procedure and treatment not carried out due to patient leaving prior to being seen by health care provider
CPT/HCPCS: 36415; 71046; 80053; 84484; 85025; 93005